=== PATIENT | male | born 1960 | race Caucasian/White ===

== ENCOUNTER 2019-06-16 09:20 | Outpatient (RCR) | payer OTHER, SELFPAY ==
[2019-06-02 10:00] LABS: INR 1.6; Prothrombin Time 18.8 Seconds (11.1-14.7)
[2019-06-09 10:01] LABS: INR 1.9; Prothrombin Time 21.1 Seconds (11.1-14.7)
[2019-06-16 10:01] LABS: INR 2.2; Prothrombin Time 23.9 Seconds (11.1-14.7)
== END 2019-08-31 23:59 | disposition home or self-care (01) ==
LOC: ANHLAB 09:20
PROVIDERS: PCP Family Medicine; Visit Provider Physician Assistant
DX: Z51.81 Encounter for therapeutic drug level monitoring (principal); Z86.718 Personal history of other venous thrombosis and embolism; Z79.01 Long term (current) use of anticoagulants
CPT/HCPCS: 36415; 85610

== ENCOUNTER 2019-10-14 09:11 | Outpatient (CLI) | payer OTHER, SELFPAY ==
[2019-10-14 12:46] LABS: Blood Urea Nitrogen 9 mg/dL (9-20); Carbon Dioxide 24 mmol/L (22-30); Chloride 108 mmol/L (98-107); Estimated Glomerular Filt Rate > 60; Glucose 129 mg/dL (75-110); Hemoglobin A1C 7.2 % (<5.7); Potassium 4.2 mmol/L (3.4-5.0); Sodium 139 mmol/L (137-145)
== END 2019-10-14 09:12 | disposition home or self-care (01) ==
PROVIDERS: PCP Family Medicine; Visit Provider Physician Assistant
DX: E11.9 Type 2 diabetes mellitus without complications (principal); I10 Essential (primary) hypertension; Z79.4 Long term (current) use of insulin
CPT/HCPCS: 36415; 80048; 83036

== ENCOUNTER 2019-12-14 09:53 | Outpatient (RCR) | payer OTHER, SELFPAY ==
[2019-09-20 13:24] LABS: INR 4.3; Prothrombin Time 40.3 Seconds (11.1-14.7)
[2019-10-05 12:39] LABS: INR 4.1; Prothrombin Time 39.5 Seconds (11.1-14.7)
[2019-10-14 13:10] LABS: INR 2.9; Prothrombin Time 30.2 Seconds (11.1-14.7)
[2019-10-28 10:28] LABS: INR 3.5; Prothrombin Time 34.5 Seconds (11.1-14.7)
[2019-11-04 09:39] LABS: INR 2.6
[2019-12-08 12:34] LABS: INR 4.7; Prothrombin Time 43.9 Seconds (11.1-14.7)
[2019-12-14 10:25] LABS: INR 1.9; Prothrombin Time 21.1 Seconds (11.1-14.7)
== END 2019-12-19 23:59 | disposition home or self-care (01) ==
LOC: ANHLAB 09:53
PROVIDERS: PCP Family Medicine; Visit Provider Physician Assistant
DX: Z51.81 Encounter for therapeutic drug level monitoring (principal); Z86.718 Personal history of other venous thrombosis and embolism; Z79.01 Long term (current) use of anticoagulants
CPT/HCPCS: 36415; 85610

== ENCOUNTER 2019-12-14 09:55 | Outpatient (CLI) | payer OTHER, SELFPAY ==
[2019-12-14 10:29] LABS: Add Urine Microscopic? YES; Appearance Urine Clear (Clear); Bilirubin Urine Negative (Negative); Blood Urine 2+ (Negative); Color Urine Yellow (Yellow); Glucose Urine UA Negative (Negative); Ketones Urine Negative (Negative); Leukocyte Esterase Ur 1+ LEU/UL (NEGATIVE); Mucus Urine Rare /lpf; Nitrate Urine Negative (Negative); Protein Urine 1+ mg/dL (Negative); Specific Grav Ur 1.014 (1.001-1.035); Squamous Epithelial Cell Urine Rare /hpf (Few); Urobilinogen Urine Negative mg/dL (<2.0)
== END 2019-12-14 09:56 | disposition home or self-care (01) ==
PROVIDERS: PCP Family Medicine; Visit Provider Physician Assistant
DX: N39.0 Urinary tract infection, site not specified (principal)
CPT/HCPCS: 81001; 87086

== ENCOUNTER 2020-01-31 09:20 | Outpatient (RCR) | payer OTHER, SELFPAY ==
[2020-01-31 09:44] LABS: INR 1.6
== END 2020-04-30 23:59 | disposition home or self-care (01) ==
LOC: ANHLAB 09:20
PROVIDERS: PCP Family Medicine; Referring Provider Physician Assistant; Visit Provider Physician Assistant
DX: Z51.81 Encounter for therapeutic drug level monitoring (principal); I69.30 Unspecified sequelae of cerebral infarction; Z86.718 Personal history of other venous thrombosis and embolism; Z79.01 Long term (current) use of anticoagulants
CPT/HCPCS: 36415; 85610

== ENCOUNTER 2020-03-09 08:57 | Outpatient (CLI) | payer OTHER, SELFPAY ==
[2020-03-09 09:36] LABS: Alanine Aminotransferase 23 U/L (4-50); Albumin Level 4.1 g/dL (3.5-5.1); Alkaline Phosphatase 49 U/L (38-126); Anion Gap 8 mmol/L (8-16); Aspartate Amino Transferase 30 U/L (17-59); Bilirubin,Total 1.9 mg/dL (0.2-1.3); Blood Urea Nitrogen 13 mg/dL (9-20); Calcium 9.3 mg/dL (8.4-10.2); Carbon Dioxide 32 mmol/L (22-30); Chloride 107 mmol/L (98-107); Estimated Glomerular Filt Rate > 60; Glucose 102 mg/dL (75-110); Potassium 3.7 mmol/L (3.4-5.0); Sodium 147 mmol/L (137-145)
== END 2020-03-09 08:58 | disposition home or self-care (01) ==
PROVIDERS: PCP Family Medicine; Visit Provider Physician Assistant
DX: E11.9 Type 2 diabetes mellitus without complications (principal); I10 Essential (primary) hypertension
CPT/HCPCS: 36415; 80053; 83036

== ENCOUNTER 2020-07-13 09:50 | Outpatient (CLI) | payer OTHER, SELFPAY ==
[2020-07-13 10:25] LABS: Hematocrit 37.7 % (42.0-52.0); Hemoglobin 11.5 g/dL (14.0-18.0); Mean Corpuscular HGB Conc 30.5 g/dl (32-36); Mean Corpuscular Hemoglobin 24.7 pg (26-34); Mean Corpuscular Volume 80.9 fl (80-100); Mean Platelet Volume 10.2 fl (7.4-10.4); Platelet Count Result 165 k/mm3 (150-375); Red Blood Count 4.66 M/mm3 (4.6-6.20); Red Cell Distribution Width 15.4 % (11.5-14.5); White Blood Count 5.4 K/mm3 (4.5-10.0)
[2020-07-13 10:32] LABS: Add Urine Microscopic? YES; Appearance Urine Cloudy (Clear); Bacteria Urine Trace /hpf; Bilirubin Urine Negative (Negative); Blood Urine Negative (Negative); Color Urine Yellow (Yellow); Glucose Urine UA 1+ mg/dL (Negative); Ketones Urine Negative (Negative); Leukocyte Esterase Ur 2+ LEU/UL (NEGATIVE); Mucus Urine Heavy /lpf; Nitrate Urine Negative (Negative); Protein Urine 2+ mg/dL (Negative); Specific Grav Ur 1.016 (1.001-1.035); Squamous Epithelial Cell Urine Rare /hpf (Few); WBC Urine >75 /hpf (0-3)
[2020-07-13 10:37] LABS: Hemoglobin A1C 8.2 % (<5.7)
[2020-07-13 11:01] LABS: LDL Cholesterol Direct 55 mg/dL
[2020-07-13 11:03] LABS: Alanine Aminotransferase 18 U/L (4-50); Albumin Level 3.8 g/dL (3.5-5.1); Alkaline Phosphatase 44 U/L (38-126); Anion Gap 5 mmol/L (8-16); Aspartate Amino Transferase 25 U/L (17-59); Bilirubin,Total 2.1 mg/dL (0.2-1.3); Blood Urea Nitrogen 10 mg/dL (9-20); Calcium 9.3 mg/dL (8.4-10.2); Carbon Dioxide 30 mmol/L (22-30); Chloride 107 mmol/L (98-107); Cholesterol 114 mg/dL (0-200); Estimated Glomerular Filt Rate > 60; Glucose 122 mg/dL (75-110); HDL Direct 39 mg/dL; Sodium 142 mmol/L (137-145); Triglycerides 114 mg/dL (<150)
[2020-07-13 11:14] LABS: MALB Creatinine Ratio 158.2 mg/g (0-30)
[2020-07-13 11:20] LABS: Prostate Specific Antigen 1.4 ng/mL (< OR = 4.0)
== END 2020-07-13 09:51 | disposition home or self-care (01) ==
LOC: ANHLAB 09:53
PROVIDERS: PCP Family Medicine; Visit Provider Family Medicine
DX: E11.9 Type 2 diabetes mellitus without complications (principal); I10 Essential (primary) hypertension; E78.2 Mixed hyperlipidemia; R35.1 Nocturia
CPT/HCPCS: 36415; 80053; 80061; 81001; 82043; 83036; 84153; 84443; 85027

== ENCOUNTER 2020-09-15 09:00 | Inpatient (IN) | payer OTHER, SELFPAY ==
[2020-09-15] VITALS (28 sets, daily range): BP systolic 145–168; BP diastolic 77–96; PULSE 68–114; RESP 13–21; TEMP 36.3–36.9; O2SAT 97–100; BMI 29.2; BMI 29.0
--- NOTE | ~2020-09-15 | US_ITS ---
EXAMINATION: US venous doppler LE RT DATE: 09/15/2020 10:21 INDICATION: Right lower limb pain and swelling. Prior DVT and PE currently on Coumadin therapy. TECHNIQUE: Grayscale ultrasound images without and with compression and Doppler ultrasound images of the right lower extremity veins were obtained. COMPARISON: None. FINDINGS: There is noncompressible occlusive appearing deep venous thrombosis beginning in the posterior tibial veins and extending proximally through the popliteal vein, femoral vein and distal common femoral ve in. There is also thrombus within the right profunda (deep) femoral vein. The right peroneal veins an d greater saphenous vein outflow are patent. IMPRESSION: 1. Above and [id number] deep venous thrombosis in the right lower limb. Reviewed, dictated and finalized at location A. IMPRESSION: 1. Above and [id number] deep venous thrombosis in the right lower limb.
[2020-09-15 13:28] LABS: Basophils Percent Auto 0.2 % (0.2-1.2); Eosinophils Absolute Auto 0.1 K/mm3 (0-0.3); Eosinophils Percent Auto 0.8 % (0-4.4); Hemoglobin 11.5 g/dL (14.0-18.0); Immature Granulocyte Absolute 0.03 K/mm3 (0.00-0.031); Immature Granulocyte Percent A 0.5 % (0-0.5); Lymphocytes Absolute Auto 1.12 K/mm3 (0.9-3.2); Mean Corpuscular HGB Conc 30.3 g/dl (32-36); Mean Corpuscular Hemoglobin 24.7 pg (26-34); Mean Corpuscular Volume 81.5 fl (80-100); Mean Platelet Volume 10.3 fl (7.4-10.4); Monocytes Absolute Auto 0.5 K/mm3 (0.1-0.6); Monocytes Percent Auto 7.4 % (2.6-8.5); Neutrophils Absolute Auto 4.9 K/mm3 (1.3-6.7); Neutrophils Percent Auto 74.1 % (45.5-73.1); Platelet Count Result 154 k/mm3 (150-375); Red Blood Count 4.66 M/mm3 (4.6-6.20); Red Cell Distribution Width 15.8 % (11.5-14.5); White Blood Count 6.6 K/mm3 (4.5-10.0)
[2020-09-15 13:37] LABS: Anion Gap 3 mmol/L (8-16); Blood Urea Nitrogen 10 mg/dL (9-20); Calcium 9.5 mg/dL (8.4-10.2); Carbon Dioxide 28 mmol/L (22-30); Chloride 109 mmol/L (98-107); Estimated CRCL calculation 107 ml/min; Estimated Glomerular Filt Rate > 60; Glucose 102 mg/dL (75-110); Potassium 4.2 mmol/L (3.4-5.0); Sodium 140 mmol/L (137-145)
[2020-09-15 13:38] LABS: INR 1.4; Prothrombin Time 17.4 Seconds (11.1-14.7)
--- NOTE | 2020-09-15 13:49 | ED.EXTPRO ---
HPI - Extremity Problem General Chief complaint: Extremity Problem,Nontraumatic Stated complaint: ? Dvt Right Leg Time Seen by Provider: 09/15/20 09:47 Source: patient Mode of arrival: ambulatory Limitations: no limitations History of Present Illness HPI Narrative: 60-year-old male History of hypertension, diabetes, kidney transplant, CVA, DVT He is on Coumadin Relatively poor historian but complains of mild discomfort behind the kneecap but actually in the upper posterior calf on his right leg for about a day The leg has been swollen compared to the opposite side for a bit longer than that He is not having chest pain or shortness of breath He does have left-sided weakness from his previous CVA Related Data Home Medications Medication Instructions Recorded Confirmed amlodipine 10 mg tablet 10 mg PO DAILY 04/22/19 07/18/20 cholecalciferol (vitamin D3) 25 25 mcg PO DAILY 04/22/19 07/18/20 mcg (1,000 unit) capsule insulin lispro 100 unit/mL 7 unit SUB-Q .QAC ml 04/22/19 07/18/20 subcutaneous half-unit pen Allergies Allergy/AdvReac Type Severity Reaction Status Date / Time Penicillins Allergy Unknown Rash Verified 09/15/20 09:17 Review of Systems Review of Systems: All systems reviewed & are unremarkable except as noted in HPI and below Constitutional: Constitutional: Reports no additional constitutional complaints, Denies chills, Denies fever(s) and Denies headache(s) Eyes: Eyes: Reports no additional eye complaints and Denies change in vision ENT: Denies headache(s) and Denies sore throat Cardiovascular: Cardiovascular: Denies chest pain and Denies dyspnea Respiratory: Respiratory: Denies cough and Denies dyspnea Gastrointestinal: Gastrointestinal: Denies abdominal pain, Denies diarrhea and Denies vomiting Genitourinary: Genitourinary: Denies dysuria and Denies urinary frequency Musculoskeletal: Musculoskeletal: Denies deformity, Reports arthralgias, Reports joint swelling, Reports muscle cramps and Denies numbness Integumentary/Breasts: Skin/Breast: Denies rash and Denies wounds Neurologic: Denies headache(s), Denies focal weakness and Denies numbness Psychiatric: Psychiatric: Reports no additional psychiatric complaints Endocrine: Endocrine: Reports no additional endocrine complaints Hematologic/Lymphatic: Hematologic/Lymphatic: Reports no additional hematologic/lymphatic complaints Allergic/Immunologic: Allergic/Immunologic: Reports no additional allergic/immunologic complaints PMFSH Past Medical History Medical History (Updated 09/15/20 @ 14:56 by Sanjiv Wise MD) DVT (deep venous thrombosis) Essential (primary) hypertension H/O: stroke with residual effects Hemiparesis of nondominant side [facility] (current) use of anticoagulants M[facility] current use of anticoagulants with INR goal of 2.0-3.0 Mixed hyperlipidemia Personal history of other venous thrombosis and embolism Polycystic kidney disease Type 2 diabetes mellitus without complications Surgical History Surgical History S/P kidney transplant Family History Family History Father Family history of polycystic kidney disease Sibling Family history of polycystic kidney disease Mother Family history of malignant neoplasm of ovary Social History Social History Smoking packs per day: 1 Smoking cigarettes per day: 20.0 Years smoked: 15 Smoking pack-years: 15.00 Smoking status: Former smoker Tobacco type: cigarettes Second hand tobacco smoke exposure: No Smoking end date: 05/12/93 Alcohol intake: never Substance use: never Substance use type: does not use Gender identity (if verbalized by the patient): Male Exam Const: General: cooperative, no acute distress and alert HENMT: Head: normal to inspection, normocephali
[2020-09-15] MEDS: WARFARIN (*PBKC) 10 MG TABLET PO (15:21)
[2020-09-15] MEDS: HEPARIN SODIUM 5,000 UNITS/ML VIAL 8000 UNITS IV PUSH (15:22)
[2020-09-15] MEDS: HEPARIN SOD/D5W 100 UNITS/ML 25,000 UNITS/250 ML BAG 15 UNITS IV CONT (15:24)
--- NOTE | 2020-09-15 16:48 | ADMGEN ---
This patient, Jack Grossman, was admitted to Medical Room 259-. Patient/family oriented to hospital policies and general routines including ID bracelet, bed and alarms, visiting hours, pain management, procedures, bathroom and other care routines, personal items, smoking policy, room service/diet, and visiting hours. Information on how to activate the Rapid Response Team has been discussed. Patient/Family are encouraged to report perceived risks to care and to ask questions if they do not understand what they are told or what they should do.
[2020-09-15 17:45] LABS: Glucose Point of Care 81 (65-105)
--- NOTE | 2020-09-15 19:06 | PM.IMHP ---
H&P: HPI History of Present Illness Date/Time: 09/15/20 19:06 this is a 60-year-old male patient has a past medical history of having a DVT and PEs. He also has a history of a renal transplant is on on Prograf. The patient had a renal transplant 11 years ago. The patient is on Coumadin for his history of PEs and DVTs. The patient stated that he has not had his INR checked in over a week. The patient stated that his right leg started to her today and is swollen. The patient stated that it felt like it did when he had a DVT in the past. He denies any shortness of breath or chest pain. The patient has some weakness to the left arm which is from an old CVA. He also has some problems with his vision due to his old CVA. Was obtained and was read as above and below the knee deep venous thrombus in the right lower limb and I reviewed this report with the ER provider in the emergency room. ER provider explained to me that the patient did not need a vascular surgeon for a thrombectomy a at this time. The patient has a positive pedal pulse on the right foot and his foot is warm with normal color. The patient was started on a heparin drip and given Coumadin to bridge him to a therapeutic INR. Today's INR is 1.4. The patient is being admitted for observation status on the date of service of 09/15/2020. Chief Complaint: Right leg pain Review of Systems Review of Systems: All systems reviewed & are unremarkable except as noted in HPI and below Constitutional: Constitutional: Reports as per HPI and Reports no additional constitutional complaints Eyes: Eyes: Reports as per HPI and Reports no additional eye complaints ENT: Reports system reviewed and no additional complaints, except as documented and Reports Normal hearing present Cardiovascular: Cardiovascular: Reports no additional cardiovascular complaints Respiratory: Respiratory: Reports no additional respiratory complaints and Reports no additional respiratory complaints Gastrointestinal: Gastrointestinal: Reports as per HPI and Reports no additional gastrointestinal complaints Musculoskeletal: Musculoskeletal: Reports no additional musculoskeletal complaints Integumentary/Breasts: Skin/Breast: Reports system reviewed and no additional complaints, except as docu and Reports as per HPI Neurologic: Reports system reviewed and no additional complaints, except as documented, Reports as per HPI and Reports Normal hearing present Psychiatric: Psychiatric: Reports no additional psychiatric complaints and Reports as per HPI Endocrine: Endocrine: Reports no additional endocrine complaints Hematologic/Lymphatic: Hematologic/Lymphatic: Reports no additional hematologic/lymphatic complaints Allergic/Immunologic: Allergic/Immunologic: Reports no additional allergic/immunologic complaints FOR[facility]LY [facility] Past Medical History Medical History (Updated 09/15/20 @ 19:11 by Mirna Simons NP) DVT (deep venous thrombosis) Essential (primary) hypertension H/O: stroke with residual effects Hemiparesis of nondominant side skilled nursing (current) use of anticoagulants skilled nursing current use of anticoagulants with INR goal of 2.0-3.0 Mixed hyperlipidemia Personal history of other venous thrombosis and embolism Polycystic kidney disease Type 2 diabetes mellitus without complications Surgical History Surgical History (Updated 09/15/20 @ 19:22 by Mirna Simons NP) History of bilateral cataract extraction S/P kidney transplant 2009 Family History Family History Father Family history of polycystic kidney disease Sibling Family history of polycystic kidney disease Diabetes mellitus Kidney transplant recipient Mother Family history of malignant neoplasm of ovary Social History Social History Smoking packs per day: 1 Smoking cigarettes per day: 20.0 Years smoked: 15 Smoking pack-years: 15
--- NOTE | 2020-09-15 20:13 | PHAR ---
HOME MED VERIFIED = [facility] [id number] TACROLIMUS 1MG CAPS. 2 CAPS EVERY MORNING & 1 CAP EVERY EVENING
[2020-09-15] MEDS: carvediloL 6.25 MG TABLET PO (21:00)
[2020-09-15 22:21] LABS: Partial Thromboplastin Time > 200.0 SECONDS (22.3-36.8)
[2020-09-16 05:48] LABS: Basophils Percent Auto 0.2 % (0.2-1.2); Eosinophils Absolute Auto 0.1 K/mm3 (0-0.3); Eosinophils Percent Auto 1.5 % (0-4.4); Hematocrit 35.6 % (42.0-52.0); Hemoglobin 10.8 g/dL (14.0-18.0); Immature Granulocyte Absolute 0.02 K/mm3 (0.00-0.031); Immature Granulocyte Percent A 0.4 % (0-0.5); Immature Platelet Fraction Pct 4.3 % (0.9-11.2); Lymphocytes Absolute Auto 1.25 K/mm3 (0.9-3.2); Lymphocytes Percent Auto 27.1 % (18.3-44.2); Mean Corpuscular HGB Conc 30.3 g/dl (32-36); Mean Corpuscular Hemoglobin 24.5 pg (26-34); Mean Corpuscular Volume 80.9 fl (80-100); Mean Platelet Volume 10.7 fl (7.4-10.4); Monocytes Absolute Auto 0.5 K/mm3 (0.1-0.6); Monocytes Percent Auto 10.6 % (2.6-8.5); Neutrophils Absolute Auto 2.8 K/mm3 (1.3-6.7); Neutrophils Percent Auto 60.2 % (45.5-73.1); Platelet Count Result 141 k/mm3 (150-375); White Blood Count 4.6 K/mm3 (4.5-10.0)
[2020-09-16 05:52] VITALS: BP 161/92; PULSE 69; RESP 16; TEMP 36.4; O2SAT 97
[2020-09-16 05:56] LABS: INR 1.7; Prothrombin Time 20.1 Seconds (11.1-14.7)
[2020-09-16 05:59] LABS: Partial Thromboplastin Time 151.5 SECONDS (22.3-36.8)
[2020-09-16 06:39] LABS: Glucose Point of Care 84 (65-105)
[2020-09-16] MEDS: HEPARIN SOD/D5W 100 UNITS/ML 25,000 UNITS/250 ML BAG 9 UNITS IV CONT ×2 (08:22→15:08)
[2020-09-16 08:31] VITALS: PULSE 76
[2020-09-16] MEDS: predniSONE 5 MG TABLET PO (08:31)
[2020-09-16] MEDS: CHOLECALCIFEROL 1,000 UNITS TABLET 1000 UNITS PO (08:31)
[2020-09-16] MEDS: ROSUVASTATIN 10 MG TABLET PO (08:31)
[2020-09-16] MEDS: lisinopriL 10 MG TABLET 30 MG PO (08:31)
[2020-09-16] MEDS: carvediloL 6.25 MG TABLET PO ×2 (08:31→20:10)
[2020-09-16] MEDS: INSULIN GLARGINE (*BKC) 100 UNITS/ML 35 UNITS SUB-Q (08:32)
[2020-09-16 12:48] LABS: Glucose Point of Care 134 (65-105)
--- NOTE | 2020-09-16 13:09 | PM.IMPN ---
Progress Note: A&P Assessment and Plan (1) DVT (deep venous thrombosis): Code(s): I82.409 - Acute embolism and thrombosis of unspecified deep veins of unspecified lower extremity Status: Acute Assessment and Plan: The patient has been on Coumadin but is subtherapeutic. The patient stated that he at times he has difficulty controlling his INR. The patient stated that when he is on 5-6 mg then he becomes supratherapeutic but then when he is on for he subtherapeutic. We talked about consistency with his green vegetables. The patient tells me that he has not been consistent with his green leafy vegetables. We discussed PT INR checks with possible MD INR in the patient is agreeable to do this if his primary care doctor's agreeable. For now the patient is on heparin drip. He was given 10 mg of Coumadin in the emergency room for subtherapeutic level of 1.4 on his INR. I did increase his Coumadin to 5 mg daily. Were going to have him on heparin drip until we can bridge him back to his Coumadin. (2) Subtherapeutic anticoagulation: Code(s): Z51.81 - Encounter for therapeutic drug level monitoring; Z79.01 - emt intermediate (current) use of anticoagulants Status: Acute Assessment and Plan: Patient was given 10 mg of Coumadin in the emergency room and is currently on heparin drip. I did change his dose on the Coumadin 5 mg and will do daily PT INR. (3) Essential hypertension: Code(s): I10 - Essential (primary) hypertension Status: Acute Assessment and Plan: Were still verify his home medications but from the prescription monitoring program it looks like the patient is on Coreg. Continue with lisinopril (4) Mixed hyperlipidemia: Code(s): E78.2 - Mixed hyperlipidemia Status: Acute Assessment and Plan: Continue with Crestor (5) Renal transplant, status post: Code(s): Z94.0 - Kidney transplant status Status: Acute Assessment and Plan: I met the patient's down in the emergency room. We talked about his anti rejection medications. We do not carry Prograf here. I did ask the patient's to bring in the Prograf and she agreed. It looks like the patient may also be on prednisone. The patient stated that he is on Bactrim 3 times a week as well due to his renal transplant. Patient's BUN and creatinine are within normal limits. (6) Type 2 diabetes mellitus without complication, with long-term current use of insulin: Code(s): E11.9 - Type 2 diabetes mellitus without complications; Z79.4 - emt intermediate (current) use of insulin Status: Acute Assessment and Plan: Will do Accu-Cheks AC and HS. It last A1c was noted to be 8.2 in the physician's office. Continue with long-acting insulin. (7) H/O: stroke with residual effects: Code(s): I69.30 - Unspecified sequelae of cerebral infarction Status: Chronic Assessment and Plan: The patient stated that he lost his peripheral vision in the left eye due to his last CVA. He has some mild weakness to the left arm which is his residual. The stated that occasionally he will drift to the left side when walking. Subjective Date/time seen: 09/16/20 13:09 Interval history: Patient was seen during the morning rounds today. Decrease pain lower extremity. No shortness of breath or chest pain. Mood stable. Review of Systems Review of Systems: All systems reviewed & are unremarkable except as noted in HPI and below Constitutional: Constitutional: Reports as per HPI and Reports no additional constitutional complaints Eyes: Eyes: Reports as per HPI and Reports no additional eye complaints ENT: Reports system reviewed and no additional complaints, except as documented and Reports Normal hearing present Cardiovascular: Cardiovascular: Reports no additional cardiovascular complaints Respiratory: Respiratory: Reports no additional respiratory complaints and Reports no additional respiratory
[2020-09-16 14:00] VITALS: BP 144/82; PULSE 69; RESP 18; TEMP 36.7; O2SAT 97
[2020-09-16] MEDS: WARFARIN (*PBKC) 5 MG TABLET PO (17:01)
[2020-09-16 18:14] LABS: Glucose Point of Care 158 (65-105)
[2020-09-16 19:37] LABS: Partial Thromboplastin Time 72.3 SECONDS (22.3-36.8)
[2020-09-16 20:10] VITALS: PULSE 69
[2020-09-16 20:23] LABS: Glucose Point of Care 156 (65-105)
[2020-09-16 22:00] VITALS: BP 149/69; PULSE 66; RESP 20; TEMP 37.1; O2SAT 99
[2020-09-17 05:47] LABS: Hematocrit 35.5 % (42.0-52.0); Mean Corpuscular Hemoglobin 24.3 pg (26-34); Mean Corpuscular Volume 78.5 fl (80-100); Mean Platelet Volume 10.6 fl (7.4-10.4); Platelet Count Result 144 k/mm3 (150-375); Red Blood Count 4.52 M/mm3 (4.6-6.20); Red Cell Distribution Width 15.8 % (11.5-14.5); White Blood Count 4.1 K/mm3 (4.5-10.0)
[2020-09-17 06:00] VITALS: BP 153/73; PULSE 67; RESP 20; TEMP 36.6; O2SAT 99
[2020-09-17 06:00] LABS: INR 1.8; Prothrombin Time 21.7 Seconds (11.1-14.7)
[2020-09-17 06:01] LABS: Partial Thromboplastin Time 82.3 SECONDS (22.3-36.8)
[2020-09-17 06:54] LABS: Glucose Point of Care 91 (65-105)
--- NOTE | 2020-09-17 08:09 | PM.IMPN ---
Progress Note: A&P Assessment and Plan (1) DVT (deep venous thrombosis): Code(s): I82.409 - Acute embolism and thrombosis of unspecified deep veins of unspecified lower extremity Status: Acute Assessment and Plan: The patient has been on Coumadin but is subtherapeutic. The patient stated that he at times he has difficulty controlling his INR. The patient stated that when he is on 5-6 mg then he becomes supratherapeutic but then when he is on for he subtherapeutic. We talked about consistency with his green vegetables. The patient tells me that he has not been consistent with his green leafy vegetables. We discussed PT INR checks with possible MD INR in the patient is agreeable to do this if his primary care doctor's agreeable. For now the patient is on heparin drip. He was given 10 mg of Coumadin in the emergency room for subtherapeutic level of 1.4 on his INR. I did increase his Coumadin to 5 mg daily. Were going to have him on heparin drip until we can bridge him back to his Coumadin. (2) Subtherapeutic anticoagulation: Code(s): Z51.81 - Encounter for therapeutic drug level monitoring; Z79.01 - manager hotel (current) use of anticoagulants Status: Acute Assessment and Plan: Patient was given 10 mg of Coumadin in the emergency room and is currently on heparin drip. I did change his dose on the Coumadin 5 mg and will do daily PT INR. (3) Essential hypertension: Code(s): I10 - Essential (primary) hypertension Status: Acute Assessment and Plan: Were still verify his home medications but from the prescription monitoring program it looks like the patient is on Coreg. Continue with lisinopril (4) Mixed hyperlipidemia: Code(s): E78.2 - Mixed hyperlipidemia Status: Acute Assessment and Plan: Continue with Crestor (5) Renal transplant, status post: Code(s): Z94.0 - Kidney transplant status Status: Acute Assessment and Plan: I met the patient's down in the emergency room. We talked about his anti rejection medications. We do not carry Prograf here. I did ask the patient's to bring in the Prograf and she agreed. It looks like the patient may also be on prednisone. The patient stated that he is on Bactrim 3 times a week as well due to his renal transplant. Patient's BUN and creatinine are within normal limits. (6) Type 2 diabetes mellitus without complication, with long-term current use of insulin: Code(s): E11.9 - Type 2 diabetes mellitus without complications; Z79.4 - manager hotel (current) use of insulin Status: Acute Assessment and Plan: Will do Accu-Cheks AC and HS. It last A1c was noted to be 8.2 in the physician's office. Continue with long-acting insulin. (7) H/O: stroke with residual effects: Code(s): I69.30 - Unspecified sequelae of cerebral infarction Status: Chronic Assessment and Plan: Stable on meds. Additional Plan Patient INR today is 1.8. Patient pain in the lower extremity had is decreasing. Lung examination is normal. Plan is to continue current plan of care and treatment. Give Coumadin 5 mg p.o. tonight. If patient and improved and become therapeutic tomorrow morning will discharge home in the morning. Subjective Date/time seen: 09/17/20 08:09 Interval history: Patient was seen during the morning rounds today. Mood stable. No new complaints today. Patient leg pain has decreased. No shortness of breath or chest pain. Patient's of the last night. Review of Systems Review of Systems: All systems reviewed & are unremarkable except as noted in HPI and below Constitutional: Constitutional: Reports as per HPI and Reports no additional constitutional complaints Eyes: Eyes: Reports as per HPI and Reports no additional eye complaints ENT: Reports system reviewed and no additional complaints, except as documented and Reports Normal hearing present Cardiovascular: Cardiovascular:
[2020-09-17 09:24] VITALS: PULSE 72
[2020-09-17] MEDS: lisinopriL 10 MG TABLET 30 MG PO (09:24)
[2020-09-17] MEDS: ROSUVASTATIN 10 MG TABLET PO (09:24)
[2020-09-17] MEDS: carvediloL 6.25 MG TABLET PO ×2 (09:24→20:41)
[2020-09-17] MEDS: predniSONE 5 MG TABLET PO (09:24)
[2020-09-17] MEDS: CHOLECALCIFEROL 1,000 UNITS TABLET 1000 UNITS PO (09:24)
[2020-09-17] MEDS: INSULIN GLARGINE (*BKC) 100 UNITS/ML 35 UNITS SUB-Q (09:31)
[2020-09-17 12:01] LABS: Glucose Point of Care 123 (65-105)
[2020-09-17 14:00] VITALS: BP 142/71; PULSE 64; RESP 16; TEMP 36.8; O2SAT 100
[2020-09-17 16:43] VITALS: O2SAT 99
[2020-09-17 17:24] LABS: Glucose Point of Care 251 (65-105)
--- NOTE | 2020-09-17 17:42 | PC.NURSE ---
Patient ate supper early (1630) and blood glucose checked at 1730. Blood glucose 250. Called Dr. Gaffney and orders received to hold sliding scale insulin dose.
[2020-09-17] MEDS: WARFARIN (*PBKC) 5 MG TABLET PO (17:46)
[2020-09-17] MEDS: HEPARIN SOD/D5W 100 UNITS/ML 25,000 UNITS/250 ML BAG 9 UNITS IV CONT (17:48)
[2020-09-17 20:41] VITALS: PULSE 98
[2020-09-17 21:11] LABS: Glucose Point of Care 178 (65-105)
[2020-09-17 22:00] VITALS: BP 153/88; PULSE 68; RESP 20; TEMP 36.6; O2SAT 98
[2020-09-18 05:48] LABS: INR 1.9; Prothrombin Time 22.2 Seconds (11.1-14.7)
[2020-09-18 05:50] LABS: Partial Thromboplastin Time 72.1 SECONDS (22.3-36.8)
[2020-09-18 06:00] VITALS: BP 149/84; PULSE 65; RESP 20; TEMP 36.5; O2SAT 99
[2020-09-18 06:49] LABS: Glucose Point of Care 90 (65-105)
[2020-09-18 08:38] VITALS: PULSE 76
[2020-09-18] MEDS: carvediloL 6.25 MG TABLET PO (08:38)
[2020-09-18] MEDS: lisinopriL 10 MG TABLET 30 MG PO (08:39)
[2020-09-18] MEDS: predniSONE 5 MG TABLET PO (08:39)
[2020-09-18] MEDS: CHOLECALCIFEROL 1,000 UNITS TABLET 1000 UNITS PO (08:39)
[2020-09-18] MEDS: ROSUVASTATIN 10 MG TABLET PO (08:39)
[2020-09-18] MEDS: INSULIN GLARGINE (*BKC) 100 UNITS/ML 35 UNITS SUB-Q (08:42)
--- NOTE | 2020-09-18 10:34 | PM.IMPN ---
Progress Note: A&P Assessment and Plan (1) DVT (deep venous thrombosis): Qualifiers: DVT location: lower extremity Chronicity: acute Laterality: right Code(s): I82.409 - Acute embolism and thrombosis of unspecified deep veins of unspecified lower extremity Status: Acute Assessment and Plan: INR 1.4 on presentation. Has been on warfarin with heparin drip. Warfarin currently at 5 mg of INR up to 1.9. Patient reports he has some things to get done at home and would like to discharge today. Willing to do Lovenox. Checking with insurance regarding coverage for Lovenox. Preference would be to discharge home with Lovenox bridge if home today. Will need to follow-up closely as an outpatient. Lovenox covered by insurance. Discussed cost with patient with patient agreeable to current cost. Will discharge home on warfarin with Lovenox bridge. Repeat INR tomorrow. (2) Subtherapeutic anticoagulation: Code(s): Z51.81 - Encounter for therapeutic drug level monitoring; Z79.01 - computer technician (current) use of anticoagulants Status: Acute Assessment and Plan: Patient was on warfarin on presentation but subtherapeutic. INR improving. Plan to discharge home today with warfarin and Lovenox bridge as noted above. (3) nursing home current use of anticoagulants with INR goal of 2.0-3.0: Code(s): Z79.01 - computer technician (current) use of anticoagulants Status: Acute Assessment and Plan: Long-term goal is INR 2.0-3.0. Will need to continue Lovenox bridge until achieved but anticipate shouldl only be a few days. (4) Renal transplant, status post: Code(s): Z94.0 - Kidney transplant status Status: Acute Assessment and Plan: History of transplant in 2009. Has had Lovenox and warfarin since that time on more than 1 occasion. Presently stable. (5) Essential hypertension: Code(s): I10 - Essential (primary) hypertension Status: Acute Assessment and Plan: Blood pressure reviewed on 09/18/2020 and stable. Continue carvedilol and lisinopril. (6) Type 2 diabetes mellitus without complication, with long-term current use of insulin: Code(s): E11.9 - Type 2 diabetes mellitus without complications; Z79.4 - computer technician (current) use of insulin Status: Acute Assessment and Plan: Glucose reviewed on 09/18/2020 and controlled. Currently on Lantus and insulin. Will need to follow as outpatient. (7) History of stroke with residual deficit: Code(s): I69.30 - Unspecified sequelae of cerebral infarction Status: Acute Assessment and Plan: No acute issue at this time. Continue statin. (8) Mixed hyperlipidemia: Code(s): E78.2 - Mixed hyperlipidemia Status: Acute Assessment and Plan: Continue home rosuvastatin. Time Spent With Patient Time with patient: 15 - 25 minutes Subjective Date/time seen: 09/18/20 10:34 Interval history: Date of Service: 09/18/2020. Admitted with RLE DVT. Known previous history of PE/DVT on warfarin but was subtherapeutic on admission. Patient reports pain and swelling has improved and right lower extremity. No chest pain or shortness of breath. No abdominal pain, nausea or vomiting. Very much wants to go home today. Review of Systems Review of Systems: Narrative: Feeling much better. Wants to go home. Constitutional: Constitutional: Denies fatigue and Denies fever(s) ENT: Reports system reviewed and no additional complaints, except as documented Cardiovascular: Cardiovascular: Denies chest pain Respiratory: Respiratory: Denies dyspnea and Denies dyspnea on exertion Gastrointestinal: Gastrointestinal: Denies abdominal pain, Denies nausea and Denies vomiting Genitourinary: Genitourinary: Reports no additional male genitourinary complaints Musculoskeletal: Comments: Pain decreased right lower extremity Integumentary/Breasts: Comments: No redness right lower extremity Neurologic
--- NOTE | 2020-09-18 10:49 | PM.DS ---
DS: Admitting Diagnosis Admitting Diagnosis Admitting Diagnosis: Acute DVT right lower extremity, subtherapeutic INR. 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 with INR goal of 2.0-3.0: Code(s): Z79.01 - [facility] (current) use of anticoagulants Status: Acute Assessment and Plan: L (4) Renal transplant, status post: Code(s): Z94.0 - Kidney transplant status Status: Acute (5) Essential hypertension: Code(s): I10 - Essential (primary) hypertension Status: Acute (6) Type 2 diabetes mellitus without complication, with long-term current use of insulin: Code(s): E11.9 - Type 2 diabetes mellitus without complications; Z79.4 - [facility] (current) use of insulin Status: Acute (7) History of stroke with residual deficit: Code(s): I69.30 - Unspecified sequelae of cerebral infarction Status: Acute (8) Mixed hyperlipidemia: Code(s): E78.2 - Mixed hyperlipidemia Status: Acute DS: Summary Hospital Course Reason for hospitalization: Pain and swelling right leg. Hospital Course: Date of Service of Discharge: September 18, 2020. History of Present Illness: Patient is a 60-year-old gentleman with history of DVT and PE as well as renal transplant in 2009 on Prograf who presented to the emergency room with complaint of right leg swelling. Patient denied chest pain or shortness of breath. Patient with no residual weakness to the left arm from old CVA. Also visual problems due to his old CVA. On evaluation in the emergency room, venous Doppler was consistent with DVT above and below the knee on the right. INR was subtherapeutic. Patient was started on heparin along with warfarin and admitted for further evaluation and treatment. Course in Hospital: As noted, patient was started on heparin drip with warfarin initiated. Initially he was given 10 mg of warfarin but then cut back to 5 mg warfarin. Patient's INR gradually was increasing but only up to 1.9 on the day of discharge. Patient was very adamant about leaving due to some home issues. Patient was agreeable to bridging with Lovenox. Patient was advised of risks. With Lovenox branch approved, patient was able to go home with warfarin at 5 mg but to continue close follow-up of INR with next test on 09/19/2020. Of note, patient had improvement of swelling and pain in the right lower extremity. While in hospital, blood pressure was monitored and well controlled on carvedilol and lisinopril. His glucose was also well controlled on Lantus along with sliding scale insulin. He had no difficulties with his kidney function with known renal transplant. No new issues related to previous stroke. He did continue rosuvastatin without interruption. With the patient having increasing INR and plans to continue Lovenox bridge until INR therapeutic between 2.0-3.0, he was able to go home on the September 18, 2020, with close follow-up. Status at Discharge Cognitive/behavioral status at discharge: Normal. Functional status at discharge: independent ambulation Overall status at discharge: patient is back to baseline Time Spent with Patient Time attestation: Total time spent providing and/or coordinating discharge services: 35 minutes. Time spent: Greater than 30 minutes Exam Narrative: Exam Narrative: Awake and alert. Const: General: no acute distress Orientation/consciousness: patient oriented x3 HENMT: Mouth: Yes moist mucous membranes Neck: Neck: s
[2020-09-18 11:44] LABS: Glucose Point of Care 113 (65-105)
== END 2020-09-18 12:40 | disposition home or self-care (01) | DRG 300 ==
LOC: ANHED 14:56 → ANH2MED 15:48
PROVIDERS: Internal Medicine; Nurse Practitioner; Admitting Provider Hospitalist; Emergency Provider Emergency Medicine; PCP Family Medicine; Visit Provider Hospitalist
DX: I82.441 Acute embolism and thrombosis of right tibial vein (principal); Z94.0 Kidney transplant status; I69.354 Hemiplegia and hemiparesis following cerebral infarction affecting left non-dominant side; I82.431 Acute embolism and thrombosis of right popliteal vein; I10 Essential (primary) hypertension; E78.5 Hyperlipidemia, unspecified; E11.9 Type 2 diabetes mellitus without complications; Z79.4 Long term (current) use of insulin; I69.398 Other sequelae of cerebral infarction; H53.8 Other visual disturbances; Z79.01 Long term (current) use of anticoagulants; Z86.718 Personal history of other venous thrombosis and embolism
CPT/HCPCS: 36415; 80048; 82948; 85025; 85027; 85055; 85610; 85730; 93971; 96365; 96366; 99285; A9270; G0378; J1644; J1815; J7512

== ENCOUNTER 2020-09-19 08:16 | Outpatient (CLI) | payer OTHER, SELFPAY ==
[2020-09-19 09:16] LABS: INR 2.2; Prothrombin Time 24.6 Seconds (11.1-14.7)
== END 2020-09-19 08:17 | disposition home or self-care (01) ==
PROVIDERS: PCP Family Medicine; Visit Provider Hospitalist
DX: I82.409 Acute embolism and thrombosis of unspecified deep veins of unspecified lower extremity (principal)
CPT/HCPCS: 36415; 85610